=== PATIENT | female | born 1990 | race Caucasian/White ===

== ENCOUNTER 2021-03-24 17:42 | Emergency (ER) | payer OTHER, SELFPAY ==
--- NOTE | 2021-03-24 17:50 | ED.URI ---
HPI - URI/Sore Throat General Chief Complaint: Upper Respiratory Infection Stated Complaint: Cough,Chest Congestion History of Present Illness HPI Narrative: This is a 30 year old that has been having some coughing for the past few weeks. and she is having a headache patient daughter has been diagnosed with COVID and they have been Related Data Allergies Allergy/AdvReac Type Severity Reaction Status Date / Time No Known Allergies Allergy Verified 03/24/21 17:57 Review of Systems Review of Systems: cough, chest wall pain with cough All systems reviewed & are unremarkable except as noted in HPI and below PMFSH Comments At time as signature, I have reviewed and agree with nursing past medical, social, surgical and family history. Please see nursing chart for further information. There is no relevant family history pertinent to the presenting complaint. Exam Narrative: GENERAL:Well-appearing, well-nourished, and in no acute distress. HEAD:Normocephalic ENT: Nares clear, no rhinorrhea Mucous membranes moist. Pharyngeal erythema with copious amount of clear secretions CHEST: Clear to auscultation. No respiratory distress. HEART: Regular rate and rhythm. SKIN: Warm, dry, no rash. NEURO: No focal deficits. Alert and oriented x3. Course Course Emergency Course: Negative Covid Level of Care: Express Care Visit Vital Signs Vital signs: Vital Signs Temperature 97.7 F 03/24/21 17:53 Pulse Rate 87 03/24/21 17:53 Respiratory Rate 18 03/24/21 17:53 Blood Pressure 118/87 03/24/21 17:53 Pulse Oximetry 100 03/24/21 17:53 Temperature 98.5 F 03/24/21 18:04 Pulse Rate 67 03/24/21 18:04 Respiratory Rate 16 03/24/21 18:04 Blood Pressure 131/87 03/24/21 18:04 Pulse Oximetry 100 03/24/21 18:04 MDM - URI/Sore Throat Differential Diagnosis Differential diagnosis: Likely upper respiratory infection, otitis media, sinusitis, viral infection, bronchitis, influenza and pharyngitis Lab Data Labs: Lab Results 03/24/21 Range/Units 18:10 POC SARS CoV-2 Ag Negative (Negative) Discharge Plan Discharge Clinical Impression: Viral infection Upper respiratory infection Qualifiers: URI type: unspecified URI Qualified Code(s): J06.9 - Acute upper respiratory infection, unspecified Patient Disposition: Home, Self-Care Condition: Stable Instructions: Antibiotic Form, Viral Syndrome (ED), COVID-19 (Coronavirus Disease 2019) (ED) Additional Instructions: Viral illness viral illness viral illness may last between 7-12days; antibiotic is NOT recommended at this time. Recommend antihistamine such as Benadryl at night time and Claritin/Zyrtec/Martha during the day Also, recommend symptomatic treatment includes: rest, fluids, and increase humidity of the air at home. Recommend Acetaminophen or nonsteroidal anti-inflammatory agents (NSAIDs) as directed in the bottle to reduce fever and/pain/headache. Avoid smoking/second-hand smoke. Limit visits to areas with large crowds. Please schedule a follow-up visit with your personal physician for further evaluation and treatment within 3-5days. Including recheck and discussion of your blood pressure. If your symptoms persist, change or worsen significantly before you can contact your personal physician then please, without delay, go to the emergency department for further evaluation Prescriptions: New albuterol sulfate 90 mcg/actuation HFA aerosol inhaler 2 puff inhalation QID PRN (Reason: shortness of breath or wheezing) Qty: 8.5 RF: 0 methylprednisolone [Medrol ([place])] 4 mg tablets,dose pack See Rx Instructions .ROUTE .COMPLEX Qty: 21 RF: 0 benzonatate 200 mg capsule 200 mg PO TID PRN (Reason: cough) Qty: 30 RF: 0 Follow-up/Referrals: [facility], [Primary Care Provider] - Stand Alone Forms: Work/School Release IP Time of Disposition: 18:29
[2021-03-24 17:53] VITALS: BP 118/87; PULSE 87; RESP 18; TEMP 36.5; O2SAT 100
[2021-03-24 18:04] VITALS: BP 131/87; PULSE 67; RESP 16; TEMP 36.9; O2SAT 100
== END 2021-03-24 18:35 | disposition home or self-care (01) ==
PROVIDERS: Emergency Provider Nurse Practitioner Family
DX: B34.9 Viral infection, unspecified (principal); J06.9 Acute upper respiratory infection, unspecified; Z20.822 Contact with and (suspected) exposure to COVID-19
CPT/HCPCS: 87426; 99203; C9803; G0463